=== PATIENT | male | born 1995 | race Caucasian/White ===

== ENCOUNTER 2016-10-31 18:59 | Emergency (ER) | payer SELFPAY ==
[~2016-10-31] VITALS: Ht 165.1 cm; Wt 54.4 kg
== END 2016-10-31 20:45 | disposition left against medical advice (07) ==
LOC: ED 18:59
DX: Z53.21 Procedure and treatment not carried out due to patient leaving prior to being seen by health care provider (principal)

== ENCOUNTER 2021-05-16 22:25 | Emergency (ER) | payer SELFPAY ==
[~2021-05-16] VITALS: Ht 165.1 cm; Wt 51.1 kg
--- OUTSIDE RECORDS SUMMARY | 2021-05-16 22:34 | XMS ---
PreManage Notification: FERNIE ANTONIO Security Criminal Attorney Events No recent Security Events currently on file CRITERIA MET - Group Notification CARE PROVIDERS There are no care providers on record at this time. Sulma has no Care Guidelines for this patient. Isabella VISIT COUNT (12 MO.) 1 MADAI Levine TOTAL 1 NOTE: Visits indicate total known visits. ED/C VISIT TRACKING (12 MO.) 05/16/2021 22:27 MADAI Dow OR TYPE: Emergency COMPLAINT: - LIGHT HEADED INPATIENT VISIT TRACKING (12 MO.) No inpatient visits to display in this time frame [id number]
== END 2021-05-17 01:53 | disposition home or self-care (01) ==
LOC: ED 22:25
DX: K12.1 Other forms of stomatitis (principal); F17.200 Nicotine dependence, unspecified, uncomplicated
CPT/HCPCS: 36415; 80048; 81001; 83735; 85025; 99283

== ENCOUNTER 2021-12-31 03:25 | Inpatient (IN) | payer OTHER ==
[~2021-12-31] VITALS: Ht 165.1 cm; Wt 51.8 kg
--- OUTSIDE RECORDS SUMMARY | 2021-12-31 03:32 | XMS ---
PreManage Notification: FERNIE ANTONIO Security Teletype Clerk Events No recent Security Events currently on file CRITERIA MET - Group Notification CARE PROVIDERS There are no care providers on record at this time. Sulma has no Care Guidelines for this patient. Isabella VISIT COUNT (12 MO.) 2 MADAI Levine TOTAL 2 NOTE: Visits indicate total known visits. ED/C VISIT TRACKING (12 MO.) 12/31/2021 03:25 MADAI Dow OR TYPE: Emergency COMPLAINT: - ABD PAIN 05/16/2021 22:27 MADAI Dow OR TYPE: Emergency COMPLAINT: - LIGHT HEADED DIAGNOSES: - Other forms of stomatitis - Fever, unspecified - Nicotine dependence, unspecified, uncomplicated INPATIENT VISIT TRACKING (12 MO.) No inpatient visits to display in this time frame [id number]
--- NOTE | 2021-12-31 06:39 | NUR ---
PT ARRIVED TO UNIT FROM ED. ASSESSMENT COMPLETED. PT IS A/O, RESPIRATIONS EVEN AND REGULAR. IV FLUIDS RUNNING, IV SITE WNL. NG TUBE IN PLACE TO WALL SUCTION. PT DENIES PAIN OR NAUSEA ATT. CALL LIGHT WITHIN REACH.
--- NOTE | 2021-12-31 07:00 | NUR ---
bedside report from morris rn, iv fusing, ngt to liw suction, pt npo resting in bed, oriented to new rn with call light in reach. denies needs at this time.
--- NOTE | 2021-12-31 07:30 | NUR ---
dr banegas in with pt and guest. plan for surgery this am. RN obtained signature on consent, strait tubing hanging and surgical wipe complete - with ngt to liw suction. pt has no metal or rings watches jewlery etc. education to pt for surgery instuctions.
--- NOTE | 2021-12-31 08:14 | NUR ---
PT TO OR VIA BED WITH NGT AND STRAIT TUBING WITH ANCEF. HEPARIN AND PEPCID GIVEN PRE OP IN RM 115 BY THIS RN. MASK ON PT.
--- NOTE | 2021-12-31 10:40 | NUR ---
Pt. lives in an apartment with a roommate, girlfriend, Caroline is in the room. Pt does not use any DME, he has cerebral palsy, but no issues. Gait deficit reported but Caroline denies this. Pt plans on dc to home wheh cleared medically.
--- NOTE | 2021-12-31 11:45 | NUR ---
PT TAKEN TO OR FOR SURGERY. WILL FOLLOW
--- NOTE | 2021-12-31 11:52 | NUR ---
12/31/21 1152 Nenita Medley 1146 PATIENT ARRIVES TO PACU AWAKE OFF/ON, BUT DROWSY. SLEEPING WHEN NOT STIMULATED.
--- NOTE | 2021-12-31 12:01 | NUR ---
PTS FAMILY RETURNED TO ROOM. UPDATED ON PT STATUS AND PLAN OF CARE. NO ADDITONAL QUESTIONS OR REQUESTS.
--- NOTE | 2021-12-31 12:45 | NUR ---
PT RETURNED TO ROOM 115 VIA BED, SCD'S, IV LR AT 85/HR, PT DENIES PAIN, LEFT INGUINAL INCISION WITH SMALL AMT OF RED DRAINAGE TO ACTICOTE. PT TOLL CLEAR LIQUIDS, FRIEND IN ROOM, CALL LIGHT IN REACH - DISCUSSED PLAN OF CARE - BEDSIDE CPOX ON FINGER - 97% ROOM AIR.
--- NOTE | 2021-12-31 13:30 | NUR ---
Attempted to schedule pt with PFM for a new pcp. Was unable to speak with sports lawyer and message was left requesting a pcp for this pt as this is the clinic he would like to use. Pts name, , and phone number left on message.
--- NOTE | 2021-12-31 14:47 | NUR ---
MED REC COMPLETE
--- NOTE | 2021-12-31 14:53 | NUR ---
call to dr banegas - pt dressing on left inguinal area saturated with fluid and blood, ok to remove and replace - dr banegas here on floor at this time [id number];
--- NOTE | 2021-12-31 17:36 | NUR ---
PT PAIN 3/10 DENIES NEED FOR PAIN MEDS AT THIS TIME - JUST GOT DINNER TRAY - AGREES TO GET UP AND WALK TO BATHROOM AFTER MEAL FOR NEXT VOID - ABLE TO USE URINAL AND HAS QS - 900 ML OUT. DRESSING TO LEFT SURGICAL SITE - HERNIA IS CDI WITH ABD TO COVER - STERI STRIPS STILL INTACT. PT DID NOT WANT TO STAND UP AT THIS TIME FOR LINEN CHANGE - WILL DO WHEN HE STANDS - DRY CHUX OVER SURGICAL DRAINAGE LEFT SIDE. PT IS CDI AT SKIN SITE. IV LR AT 85 - GF AT BEDSIDE AND THEY ARE WATCHING TV. - USES IS WELL AND ENC. TO KEEP USING TO EXPAND LUNGS AND DEEP BREATH.
--- NOTE | 2021-12-31 18:08 | NUR ---
PT MOVING AROUND IN BED DURING MEAL REPORTS INCREASED DISCOMFORT - DRSG WNL - CDI - IV TORADOL GIVEN FOR PAIN,
--- NOTE | 2021-12-31 18:21 | NUR ---
PT AMB IN ROOM AND TO BATHROOM TO VOID - LINEN CHANGED AND PT VITALS TAKEN - CALL LIGHT IN REACH -
--- NOTE | 2021-12-31 19:26 | NUR ---
bedside report to trina summers, pt eyes closed, resp rate even, call light in reach - iv fusing and girlfriend in room. did not disturb pt. introduced gf to new rn,
--- NOTE | 2021-12-31 22:27 | NUR ---
coworker cely stovall called and asked to be transferred to pt room, pt made aware. pt recently medicated and asks that he call his coworker once he feels better. coworker made aware and contact information left with pt. primary rn trina remains in room. phone # [phone].
--- NOTE | 2021-12-31 22:30 | NUR ---
PATIENT HAD BEEN MEDICATED WITH 1 TAB PAIN MEDICATION PRIOR TO THIS ENTERING ROOM, PATIENT COMPLAINING OF PAIN STATING " IT'S SHOOTING INTO MY BUNGHOLE AND MOVING UP INTO MY BELLY BUTTON" PATIENT GROANING IN PAIN. ALSO COMPLAINING OF NAUSEA. ADMINISTERED ZOFRAN, MORPHINE, AND SECOND PAIN PO PAIN MEDICATION PER APR. PATIENT RATED PAIN 7 TO 8 OUT OF 10 ON PAIN SCALE BEFORE MEDICATION ADMINISTRATION THEN AT 2219 PATIENT STATED " I AM A 2/10 ON PAIN SCALE AND IT ONLY HURTS IF I MAKE IT HURT" PROVIDED PATIENT EDUCATION ON SURGICAL PAIN, THE IMPORTANCE OF EARLY AMBULATION, AND THE RISKS IF CONTINUES TO REFUSE ACTIVITY SECONDARY OF PAIN. PATIENT AGREED THAT 2/10 ON PAIN SCALE WAS TOLERABLE, PATIENT UP TO BATHROOM TO USE URINAL. APPEARED TO TOLERATE ACTIVITY WELL. PLANS TO AMBULATE IN HALLS IN THE MORNING. DISCUSSED POC WITH PATIENT AND USING CALL LIGHT. DRESSING TO LEFT INGUINAL SURGICAL SITE APPEARS ABD APPEARS TO HAVE SMALL AMOUNT OF DRAINAGE. ATTEMPTED TO DISCUSS S/S OF INFECTION WITH PATIENT, HOWEVER PATIENT REQUESTED I STOP TALKING ABOUT IT BECAUSE IT MAKES HIM "FEEL SCARED". CALL LIGHT WITHIN REACH, SIG OTHER IN ROOM STAYING THE NIGHT.
--- NOTE | 2022-01-01 01:18 | NUR ---
PATIENT APPEARS TO BE RESTING WITH EYES CLOSED. LIGHTS DIM. CALL LIGHT WITHIN REACH.
--- NOTE | 2022-01-01 04:00 | NUR ---
0300 INTO ROOM TO COLLECT VITAL SIGNS, PATIENT APPEARED TO BE SLEEPTING WELL WITH EYES CLOSED IN POSITION. WOKE PATIENT FOR VITAL SIGNS. PATIENT TURNED TO BACK THEN WITH EYES BULGING STARTED DRY HEAVING. PROVIDED PATIENT WITH PILLOW TO SPLINT. 0330 PATIENT HAD 100 ML OF EMESIS, UNDIGESTED FOOD AND BILE. 0400 MEDICATED PATIENT PER MAR. TOOK CRACKERS FROM PATIENT, AND PROVIDED WITH CLEAR LIQUIDS. PATIENT APPEARS TO BE TOLERATING CLEAR LIQUIDS WELL. BOWEL TONES ACTIVE. PATIENT RATES PAIN 2/10 ON PAIN SCALE AND REPORTS NAUSEA RESOLVED. PLAN TO AMBULATE IN HALLS BEFORE END OF SHIFT, PATIENT VERBALIZED UNDERSTANDING.
--- NOTE | 2022-01-01 06:41 | NUR ---
FRIEND/COWORKER LUDY QUINTERO CALLED, TRANSFERRED TO pt's HOSPITAL ROOM.
--- NOTE | 2022-01-01 06:59 | NUR ---
AMBULATED PATIENT IN BRANDT, PATIENT REQUESTED WALKER. TOLERATED ACTIVITY WELL. STATED " I THINK I FARTED" ENCOURAGED PATIENT TO PASS GAS. PATIENT STATED " I WISH I WOULD HAVE DONE THIS SOONER LIKE YOU SAID TO" PROVIDED AND REINFORCED EDUCATION WITH IMPORTANCE OF POST OP AMBULATION AND DRINKING FLUIDS.
--- NOTE | 2022-01-01 07:10 | NUR ---
REPORT RECEIVED FROM HOWARD JULES. PT SITTING UP IN CHAIR AND RESPONDS WHEN ADDRESSED. PTs SIGNIFICANT OTHER IN ROOM ON COUCH. PT STATES "I AM FARTING." PT REPORTS NO NEEDS AT THIS TIME. CALL LIGHT IN REACH.
--- NOTE | 2022-01-01 07:39 | NUR ---
NOTIFIED DR. OCONNOR THAT PATIENT NOT ABLE TO KEEP DOWN SALTINE CRACKERS. PATIENT HAD 100 ML EMESIS OF UNDIGESTED FOOD AND BILE. NEW ORDER FOR KUB AP AND LATERAL. PLACED ORDER [facility], CONTACTED [facility], WHO VERBALIZED WOULD EDIT ORDER MEET DR. OCONNOR'S ORDER.
--- NOTE | 2022-01-01 08:46 | NUR ---
IN TO ADMINISTER MEDICAITONS. PT SITTING UP IN BED WITH MEAL TRAY. PT TAKES PO MEDICATIONS WITH NO ISSUES AND TOLERATES SUB-Q INJECTION WELL. ASSESSMENT COMPLETE. PT REPORTS PAIN 2/10 AND STATES "IT IS NOT BAD" PT REPORTS PAIN IS TOLERABLE. PAIN IN LLQ. BOWEL TONES ACTIVE IN ALL QUADRANTS. DRESSING HAS SMALL AMOUND OF SANGUINEOUS DRAINAGE. DRESSING C/D/I OTHER BUCK. BANDAIDS TO RIGHT GREAT TOE AND SECOND TOE NOTED. IV INFUSING AT 85ML/HR. NO OTHER NEEDS AT THIS TIME CALL LIGHT IN REACH.
--- NOTE | 2022-01-01 10:00 | NUR ---
PT UP AND AMBULATING SELF AROUND IN [facility] F[facility]. PT HAS STEADY GAIT.
--- NOTE | 2022-01-01 10:35 | NUR ---
IN TO ROUND ON PT. PT LAYING IN BED. PT MEAL TRAY REMOVED. PT REQUESTING MORE WATER, WATER PROVIDED. NO OTHER NEEDS AT THIS TIME. CALL LIGHT IN REACH.
--- NOTE | 2022-01-01 12:03 | NUR ---
THIS RN IN TO SEE PATIENT WHO IS HAVING HEAVES AND A SMALL AMOUNT OF EMESIS. 8MG SIVP ZOFRAN GIVEN. VERBAL ORDER GIVEN TO THIS RN TO INCREASE IV FLUIDS TO 125MLS/HR AND THIS RN INCREASED THE RATE. PATIENT ALSO TO BE NPO EXCEPT SIPD FOR COMFORT AT THIS TIME. PATIENT AWARE AND LUNCHE TRAY HELD. PATIENT TOLD TO CALL IF STILL NAUSEATED IN 20 MINUTES.
--- NOTE | 2022-01-01 12:55 | NUR ---
PT CALL LIGHT ON. THIS RN TO ROOM. PT VOMITIING. PT HAS HAD LIGH GREEN EMESIS APROXIMATLY 50ML. PT CONTINUES TO HEAVE. PHENGRAN GIVEN. ALCOHOL SWAB UNDER NOSE PROVIDED. ORAL CARE DONE. DR. OCONNOR CONSULTED. NG TUBE ORDERS, X-RAY FOR CONFIRMATION, AND CHLORASEPTIC SPRAY ORDERS GIVEN. NG TUBE PLACED PER PROTOCOL. 100+ML LIGHT GREEN FLUID RETURN NOTED. X-RAY CALLED, STATE THEY WILL BE TO BEDSIDE SOON. PT TOELRATED PROCEEDURE WELL. NO ADDITIONAL NEEDS AT THIS TIME. CALL LIGHT WITHIN REACH. BED RAILS UP. FAMILY AT BEDSIDE.
--- NOTE | 2022-01-01 13:58 | NUR ---
THIS RN TO ROOM TO CHECK ON PT. PT RESTING IN BED WITH EYES CLOSED, AWAKENS TO MOVEMENT IN THE ROOM. PT RPEORTS 3/10 "STOMACH" PAIN AND REQUESTS PAIN MEDICATIONS. SEE MAR FOR MEDICAITON GIVEN. PT DENEIS NAUSEA. NG TUBE REMAINS TO LOW INTERMITTANT SUCTION. PT DENIES SORE THROAT AT THIS TIME. PT ADIVSED THAT CHLORASEPTIC SPRAY IS AVALIABLE IF REQUESTED. NO ADDITIONAL NEEDS AT THIS TIME. CALL LIGHT WITHIN REACH. BED RAILS UP. FAMILY AT BEDSIDE.
--- NOTE | 2022-01-01 14:33 | NUR ---
IN TO ROUND ON PT. VITALS COMPLETE. PT LAYING IN BED WITH EYES CLOSED. RR EVEN AND UNLABORED. SIGNIFICANT OTHER IN ROOM. NEW BAG OF IV FLUIDS STARTED. PT AWAKENS WHEN ADDRESSED AND REPORTS NO OTHER NEEDS AT THIS TIME. CALL LIGHT IN REACH.
--- NOTE | 2022-01-01 15:44 | NUR ---
IN TO ROUND ON PT. PT LAYING IN BED WITH EYES CLOSED. RR EVEN AND UNLABORED. SIGNIFICANT OTHER IN ROOM. NO NEEDS IDENTIFIED AT THIS TIME. CALL LIGHT IN REACH.
--- NOTE | 2022-01-01 16:49 | NUR ---
IN TO ANSWER CALL LIGHT. PT STATES "CLAMMY." COOL CLOTH PROVIDED. VITALS COMPLETE. VSS. NO TEMPERATURE. PT REPORTING PAIN 3/10. ASSESSMENT COMPLETE. DRESSING DRY AND INTACT. SLIGHT LOCAL RISE IN TEMPERATURE AROUND INCISION, ICE PACK APPLIED. ABD NON-DISTENDED AND FLAT. BOWEL TONES ACTIVE IN ALL QUADRANTS. NG TUBE TO LOW INTERMITENT SUCTION. ONCE ASSESSMENT COMPLETE PT REPORTING PAIN 7/10 IN LLQ. PRN MORPHINE PROVIDED, SEE MAR. ASSISSTED PT WITH AMBULATING 1/4 OF THE MED/SURG BRANDT WITH FWW PT STATES "I BLACKED OUT I NEED TO GO BACK." PTs GAIT STEADY. PT AMBULATED BACK TO ROOM WITH FWW AND LAID BACK DOWN IN BED. PT PLACED BACK ON NG SUCTION. ICE PACK PLACED TO SURGICAL SITE. LIGHTS DIMMED FOR COMFORT. NO OTHER NEEDS AT THIS TIME. CALL LIGHT IN REACH. SIGNIFICANT OTHER IN ROOM.
--- NOTE | 2022-01-01 18:17 | NUR ---
IN TO ROUND ON PT. PT REPORTING PAIN /. PT REPORTS BEING UPSET STATING HIS SIGNIFICANT OTHER "JUST LEFT AND BROKE UP WITH HIM." MADE PLAN TO WALK PT IN BRANDT. NO OTHER NEEDS AT THIS TIME. CALL LIGHT IN REACH.
--- NOTE | 2022-01-01 18:49 | NUR ---
IN TO ASSIST PT WITH AMBULATION. PT AMBULATED WITH FWW AND STANDBY ASSIST 2 LAPS AROUND MED/SURG BRANDT. I&Os COMPLETE. PT LAYING IN BED. IV INFUSING. NG BACK ON INTERMITTENT SUCTION. PT REPORTS NO OTHER NEEDS AT THIS TIME. CALL LIGHT IN REACH. LIGHTS DIMMED FOR COMFORT.
--- NOTE | 2022-01-01 20:11 | NUR ---
ngt TO liws r NARE IN PLACE, PATENT, DRAINING THICK BROWN/GREEN DRAINAGE. ABD INSIIN l LOW INGUINAL AREA INTACT. C/O ABD PAIN, MEDICATED WITH MORPHINE 5MG iv, ICE TO AREA, DENIES PASSING GAS. iv lca PATEN. ANXIOUS, IRRITABLE, REDIRECTABLE
--- NOTE | 2022-01-01 21:28 | NUR ---
Pt resting, on room air, drowsy, awakes easily, NGT to LIWS, NPO, oral swabs and call light at hands reach
--- NOTE | 2022-01-02 00:40 | NUR ---
Pt standing edge of bed walking in place. NGT to LIWS, flushed, draining very thick greenish colored drainage. L abd side more distendedn NICOLÁS bowel tones, c/o abd pain, L inguinal areaa dressing in place intact. medicated with Morphine 5mg IV, IVF infusing, NPO has been doing own oral care. , SCDS off at this time, denies need for voids. pleasant and cooperative
--- NOTE | 2022-01-02 02:57 | NUR ---
IN BED, HOB ELEVATED TO COMOFRT, NGT PATENT TO LIWS, IVF INFUSING, TURNS AND REPOSITINS SELF IN BED, EYES CLOSED, ON ROOM AIR, NO DISTRESS
--- NOTE | 2022-01-02 03:45 | NUR ---
up walking in place , room air, ngt to liws draining very thick green colored drainage, c/o increaed abd pain, very rare bowel tones auscultated, abd very firm left more than righ, tender, L inguinal low abd area dressing in place with shadowing, ss patent and old drainage. burping, denies passing gas. NGT flushed, increased facial distress noted. voided light monie colored urine small amounts. used urinal, increaed anxiety noted, reassured. coop with assessment and vitals, scds off. NPO does own oral care. IVF infusing w/o problems
--- NOTE | 2022-01-02 04:51 | NUR ---
in bed, eyes closed, no distress, calmer, IVF infusing R NGT to LIWS patent NPO , does own oral care, uses call light
--- NOTE | 2022-01-02 06:47 | NUR ---
Pt standing edge of bed, c/o increaed abd pain. medicated with Toradol IV. NGT to LIWS, draining very thick green drainage, flushed, pt very worried and concerned about not draining as fast, procedure explained. Abd distended. very rare faint bowel tones more on R side than left. dressing L low abd inguinal area in place. Walked hallways down to double doors by pharmacy, back up and around upper nursing station using FWW and SBA, tolerated well, increaed hickups present, no emesis, denies passing rectal gas, NPO does own oral care. IVF infusing w/o problems. still anxious reassured, currently sitting edge of bed.
--- NOTE | 2022-01-02 07:05 | NUR ---
REPORT RECEIVED FROM HOWARD ARAMBULA. PT SITTING UP IN BED AND RESPONDS WHEN ADDRESSED. PT STATES "IT STILL HURTS, BUT I AM FEELING BETTER." PT REPORTS NO NEEDS AT THIS TIME. CALL LIGHT IN REACH. FRIEND IN ROOM.
--- NOTE | 2022-01-02 07:45 | NUR ---
PT AWAKE IN ROOM. WHITE BOARD UPDATED. VISITOR IN ROOM. WARM PACK GIVEN. CALL LIGHT IN REACH. NO FURTHER NEEDS AT THIS TIME.
--- NOTE | 2022-01-02 08:59 | NUR ---
IN TO ADMINISTER MEDICATIONS. PT SITTING UP IN BED. PT TOLERATES SUB-Q INJECTION WELL. ASSESSMENT COMPLETE. BOWEL TONES HYPOACTIVE IN ALL QUADRANTS. PT REPORTS NON-TENDER WITH PALPITATION. DRESSING D/I WITH SMALL AMOUND OF OLD DRAINAGE. ICE PACK APPLIED TO AREA. PT REPORTS NO PAIN AT THIS TIME. BANDAIDS NOTED TO RIGHT GREATER TOE AND SECOND TOE. PT REQUESTS CHLORASEPTIC SPRAY, CHLORASEPTIC SPRAY PROVIDED. NO OTHER NEEDS AT THIS TIME. CALL LIGHT IN REACH.
--- NOTE | 2022-01-02 12:36 | HP ---
[facility] [address], [place] [address] Signed ADMISSION DATE: 12/31/2021 REASON FOR ADMISSION: Small bowel obstruction related to an incarcerated left inguinal hernia. 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 He presented to the emergency room in property handler hours and evaluated thoroughly by Dr. Bowers for nausea and vomiting and severe abdominal pain. Evaluation included a CT scan that confirmed a small bowel obstruction with concurrent incarcerated left inguinal hernia. A nasogastric tube has been placed. He has been admitted for further evaluation and care. PAST MEDICAL HISTORY: Noted for cerebral palsy, he does have gait disturbance related to that. He has had multiple operations on his legs for tendon release and so on. He had does use marijuana on a routine basis. He is accompanied by his girlfriend. REVIEW OF SYSTEMS: He denies any shortness of breath or chest pain. He did have nausea and vomiting, though now has a nasogastric tube in place. PHYSICAL EXAMINATION: GENERAL: A very thin white man, who is not systemically toxic. His pain is improved apparently. VITAL SIGNS: Temperature is 97.8, pulse 78, respirations 16, blood pressure 164/95, and O2 saturation on room air, 100%. His overall weight is 115 pounds. BMI is 19.1. NECK: Nasogastric tube was in place with minimal amount of drainage. CHEST: Shows normal respiratory excursion. Pulse is regular. ABDOMEN: Flat. There is fullness in the left groin suggestive of incarcerated inguinal hernia. : Testicles are normal. EXTREMITIES: Show no clubbing, cyanosis, or edema. LABORATORY STUDIES: Showed white count 12.4 and hematocrit 44.6. Electrolytes normal, though potassium slightly low at 3.2. COVID test is negative. IMAGING DATA: CT scan confirms left inguinal hernia, containing small bowel and small bowel obstruction concurrently noted. Electronically Signed By: MELISA OCONNOR MD 01/02/22 1236 PATIENT NAME: FERNIE ANTONIO HISTORY AND PHYSICAL DATE OF : [birth year] REPORT #: [id number] PHYSICIAN: MELISA OCONNOR MD PCP: NO PRIMARY CARE PHYSICIAN REPORT IS CONFIDENTIAL AND NOT TO BE RELEASED WITHOUT AUTHORIZATION [facility] [address], [place] [address] Signed ASSESSMENT AND PLAN: The patient has incarcerated left inguinal hernia with associated small bowel obstruction. He is getting IV fluids and would anticipate operation without delay. I have called the operating room and we will arrange in the morning the surgery, schedule to accommodate his emergency operation. The risks of bleeding, infection, need for bowel resection, anticipated plan for implantation of mesh, and so forth were all reviewed in detail with him in the presence of his girlfriend. He understands and wished to proceed. MD DMITRY Jovel/GIANFRANCO /[id number] cc: Dr. Bowers Copies: ~ Electronically Signed By: MELISA OCONNOR MD 01/02/22 1236 PATIENT NAME: MARCOS FERNIE VALLE HISTORY AND PHYSICAL DATE OF : [birth year] REPORT #: [id number] PHYSICIAN: MELISA OCONNOR MD PCP: NO PRIMARY CARE PHYSICIAN REPORT IS CONFIDENTIAL AND NOT TO BE RELEASED WITHOUT AUTHORIZATION
--- NOTE | 2022-01-02 12:53 | NUR ---
IN TO ADMINISTER GASTROGRAFIN THROUGH NG TUBE, PER DR. OCONNOR, SEE MAR. PT TOLERATED WELL. NG TUBE CLAMPED. NEXT DOSE IN 1 HOUR. WILL RETURN FOR NEXT DOSE. NO OTHER NEEDS AT THIS TIME. CALL LIGHT IN REACH.
--- NOTE | 2022-01-02 13:46 | NUR ---
SECOND DOSE OF GASTROGRAFIN IN. PATIENT TOLERATING THIS WELL WITH NG CLAMPED SINCE 1ST DOSE. RADIOLOGY INFORMED. CALL LIGHT IS IN REACH.
--- NOTE | 2022-01-02 14:47 | NUR ---
PATIENT CALLED HAVING 8/10 SHARP ABD PAIN AND NAUSEA. 12.5MG PROMETHAZINE GIVEN IN 20MLS NS PER PROTOCOL AND 4MG SIVP MORPHINE GIVEN WELL. PATIENT IS DECREASING IS NAUSEA. PATIENT JUST HAD A VISITOR COME IN TO SEE HIM. AWAITING RADIOLOGY TO TAKE PATIENT DOWN FOR HIS DIAGNOSTIC IMAGING. CALL LIGHT IS IN REACH.
--- NOTE | 2022-01-02 14:58 | NUR ---
PATIENT ON HIS WAY TO CT. ABD PAIN AND NAUSEA HAVE RESOLVED. PATIEN TO X-RAY VIA W/C.
--- NOTE | 2022-01-02 15:20 | NUR ---
PATIENT BACK FROM CT AND IN HIS BED. IV FLUIDS HOOKED UP AND AND RUNNING WNL. PATIENT DENIES ANY FURTHER NAUSEA OR PAIN AT THIS TIME. CALL LIGHT IN REACH. PATIENT DENIES ANY OTHE CARE NEEDS AT THIS TIME.
--- NOTE | 2022-01-02 17:26 | NUR ---
IN TO ROUND ON PT. PT STATES "IT IS HURTING." PT REPORTS PAIN 9/10 AND FEELS NAUSEAUS. PRN MORPHINE AND ZOFRAN ADMINISTERED. ASSESSMENT COMPLETE. DRESSING HAS SMALL AMOUNT OF OLD RED DRAINAGE, OTHERWISE DRY AND INTACT. BOWEL TONES HYPOACTIVE IN ALL QUADRANTS. PT REPORTS TENDER IN ALL QUADRANTS WITH PALPITATION. LUNG SOUNDS CLEAR IN ALL LOBES. NG TUBE TO LOW INTERMENTINT SUCTION. IV FLUIDS RUNNING. PT SITTING UP IN BED. NO OTHER NEEDS AT THIS TIME. CALL LIGHT IN REACH. FRIEND IN ROOM.
--- NOTE | 2022-01-02 18:24 | NUR ---
PATIENT CALLED AND IS ABDULKDAIR CONCENED BECAUSE HIS TESTICLES HAVE BECOME QUITE SWOLLEN. THIS RN OBSERVED THAT THE PATIENT DOES APPEAR TO HAVE A FAIR AMOUNT OF DEPENDENT EDEMA IN HIS SCROTUM THAT IS NOT PAINFUL. PATIENT WORRIED HIS TESTICLES ARE GOING TO "FALL OFF", AND THIS RN ASSURED PATIENT THAT THEY WOULD NOT JUST FALL OFF AND HELPED HIM ELEVATE THEM ON A ROLLED UP TOWEL. THIS RN INFORMED PATIENT I WOULD TALK TO ABOUT THIS NEW DEVELOPEMENT AND GET BACK TO THE PATIENT. JUST HAPPENED TO COME ON THE UNIT AND THIS RN INFORMED HIM OF THE SITUATION AND SAYS HE WILL BE SEEING THE PATIENT IN PERSON SHORTLY.
--- NOTE | 2022-01-02 18:47 | NUR ---
PT REPORTING PAIN 10/10 IN ABD. PRN MEDICATION GIVEN, SEE MAR. PT SITTING UP IN BED. NO OTHER NEEDS AT THIS TIME. CALL LIGHT IN REACH.
--- NOTE | 2022-01-02 18:57 | NUR ---
PATIENT EXTREMELY ANXIOUS ABOUT HIS SWOLLEN TESTICLES AND JUST INFORMED THE PATIENT THAT THE PATIENT WILL BE GOING TO SURGERY TONIGHT. PATIENT GIVEN 1MG IV ATIVAN SIVP BY THIS RN AND THIS RN IN TO HAVE PATIENT SIGN HIS SURGERY CONSENT FORM WHICH HE DID. CALL LIGHT IN REACH AND PARACHUTE MANUFACTURING SUPERVISOR'S IN DOING SURGICAL WIPE DOWN AND LR ON EXTENSION TUBING HANING FOR SURGERY.
--- NOTE | 2022-01-02 19:04 | NUR ---
IN TO DRAW LABS. PT TOLERATED WELL. GREG Lira RN IN TO ADMINISTER MEDICATION. NO OTHER NEEDS AT THIS TIME. CALL LIGHT IN REACH.
--- NOTE | 2022-01-02 19:21 | NUR ---
PATIENT GIVEN HIS PRE-OP ANTIBIOTIC AND IS AWATING TO GO TO OR. CALL LIGHT IN REACH AND PATIENT HAS NO OTHER CARE NEEDS AT THIS TIME.
--- NOTE | 2022-01-02 19:44 | NUR ---
REPORT RECEIVED FROM RNS GREG AND HOWARD CHO. pt OFF TO SURGERY AT THIS TIME WITH HOWARD ALVAREZ. NGT CLAMPED.
--- NOTE | 2022-01-02 22:44 | NUR ---
01/02/22 2244 Trinh Smith 2209 PT ARRIVED TO PACU ON RA, PT WAKES AND STARTS MOVING IN BED, PT REORIENTED TO PACU. 2214 PT MOANING IN BED AND REPORTS ANXIETY, "SO MUCH GOING ON AND I JUST WOKE UP." SENIOR PROCUREMENT MANAGER AT BEDSIDE PLACING IV. 222 PAIN MEDIICATION GIVEN PER EMAR.
--- NOTE | 2022-01-02 23:20 | NUR ---
pt BACK FROM SURGERY. DROWSY. VSS. pt AWAKENS TO VOICE. ASSESSMENT COMPLETE. NGT TO LOW INT SUCTION, GREEN DRAINAGE. BOWEL TONES HYPOACTIVE, ABD SOFT, NON-TENDER. DRESSINGS INTACT, SMALL AMT SS DRAINAGE ON MID ABDOMEN ACTICOAT. CALL LIGHT IN REACH. BED ALARM ON.
--- NOTE | 2022-01-03 00:22 | NUR ---
pt AWAKENS TO VOICE. VSS. pt STATES "I HAVE TO PEE" REORIENTED TO CATHETER. pt'S FATHER IN ROOM. pt DENIES ANY PAIN. CALL LIGHT IN REACH. BED ALARM ON.
--- NOTE | 2022-01-03 01:05 | NUR ---
pt AWAKE, VISITING WITH FATHER. VSS. DENIES PAIN. CHIANG DRAINING YELLOW URINE. NGT TO LOW INT SUCTION. NO REQUESTS AT THIS TIME.
--- NOTE | 2022-01-03 02:31 | NUR ---
pt SLEEPING, AWAKENS TO VOICE. ASSESSMENT COMPLETE. DRAINAGE UNCHANGED ON MID ABDOMEN ACTICOAT. BOWEL TONES HYPOACTIVE. ABD SOFT, TENDER WITH PALPATION. pt DENIES PAIN. IVF INFUSING WNL. SCDS ON. CALL LIGHT IN REACH.
--- NOTE | 2022-01-03 04:00 | NUR ---
PT SCD'S ALARMING. ADJUSTED, PT STIRRED, MOVED HEAD, BUT DID NOT SPEAK. RESP EVEN AND UNLABORED.
--- NOTE | 2022-01-03 05:39 | NUR ---
CALL LIGHT ANSWERED. pt COMPLAINS OF 9-10/10 PAIN IN ABDOMEN. PRN PAIN MEDICATIONS ADMINISTERED. IV ANTIBIOTICS ADMINISTERED WNL. VSS. NGT WITH 200 MLS GREEN OUTPUT THIS SHIFT. CHIANG WITH YELLOW URINE. NO ADDITIONAL REQUESTS. DRESSINGS INTACT, NO NEW DRAINAGE. CALL LIGHT IN REACH.
--- NOTE | 2022-01-03 07:05 | NUR ---
REPORT RECEIVED FROM HOWARD MOCTEZUMA. PT LAYING IN BED AND OPENS EYES AND RESPONDS WHEN ADDRESSED. PT REPORTS BEING TIRED. PT REPORTS NO OTHER NEEDS AT THIS TIME. CALL LIGHT IN REACH.
--- NOTE | 2022-01-03 08:41 | NUR ---
NEW BAG OF LR HUNG BY THIS RN AND IS INFUSING WNL. PATIENT HAS A FRIEND AT BEDSIDE VISITING. CALL LIGHT IN REACH. PATIENT HAS NO OTHER CARE NEEDS AT THIS TIME.
--- NOTE | 2022-01-03 09:20 | NUR ---
IN TO ADMINISTER MEDICATIONS. PT SITTING UP IN BED WITH VISITOR AT BEDSIDE. PT TOLERATED SUB-Q INJECTION WELL. ASSESSMENT COMPLETE. MIDLINE ABD DRESSING DRY AND INTACT WITH SMALL AMOUNT OF OLD SEROUSANGENOUS DRAINAGE. LEFT LOWER QUADRANT SURGICAL SITE STERI STRIPS IN PLACE C/D/I. HYPOACTIVE BOWEL TONES IN ALL QUADRANTS. PT ON LIWS FOR NG TUBE. IV FLUIDS INFUSING. SCDs IN PLACE TO BLE. MADE PLAN WITH PT TO AMBULATE IN BRANDT. NO OTHER NEEDS AT THIS TIME. CALL LIGHT IN REACH.
--- NOTE | 2022-01-03 10:26 | NUR ---
1000 IN TO AMBULATE PT. PT AMBULATED MED/SURG BRANDT X1 LAP WITH SBA AND FWW. PT HAS A SLOW STEADY GAIT. ONCE BACK INTO ROOM PT REPORTING PAIN / AND REQUESTING PRN PAIN MEDICATION. PRN PAIN MEDICATION ADMINISTERED, SEE APR. NEW LINENS ON PTs BED. PT LAYING IN BED WITH HOB ELEVATED. NG TUBE TO LIWS. FLUIDS RUNNING. PT PLACED BACK ONTO CONTINUOUS PULSE OX WITH O2 AT 99% ON RA. NO OTHER NEEDS AT THIS TIME. CALL LIGHT IN REACH.
--- NOTE | 2022-01-03 11:00 | NUR ---
Spoke with pt and his gisellad. Pt returned to surgery last night and now has an NG tube. Pt cont. to plan on dc to home and has a roommate Breana who will assist. Stepdanicolle also states he will return if needed, he works 3 hours away. Pt also states his girlfriend Caroline broke up with him and he would like her removed from his emergency contact. I will notify admitting. Pt states he does not drive and will not be able to get to his appts. Let him know he has [facility] and free transport to all medical and dental appts. Number given for transport. Also let him know I have been attempting to get him a pcp through [facility] and he is in agreement and as he uses their Urgent Care for a pcp at this time. Attempted to call Mehreen at [facility] as I left a message last week, I have not been able to reach them to schedule appt.
--- NOTE | 2022-01-03 12:23 | NUR ---
IN TO ROUND ON PT. PT REQUESTING BANDAIDS FOR RIGHT GREAT TOE AND SECOND TOE, BANDAIDS PROVIDED AND PLACED. PT REPORTING PAIN 6/10 AND STATES "IT IS RIGHT ABOVE THE INCISION." PT DENIES WANTING PAIN MEDICATION AT THIS TIME. PLANS MADE TO WALK PT LATER TODAY. NO OTHER NEEDS AT THIS TIME. CALL LIGHT IN REACH.
--- NOTE | 2022-01-03 12:34 | NUR ---
THIS RN ASKED [facility] TO AMBULATE PT IN BRANDT. THIS RN AND [facility] IN ROOM. THIS RN UNPLUGGED IV PUMP FROM WALL AND CLAMPED NG TUBE. [facility] AMBULATING PT WITH FWW AND SBA. NO OTHER NEEDS FROM THIS RN AT THIS TIME.
--- NOTE | 2022-01-03 13:14 | NUR ---
PT BACK IN BED FROM AMBULATING BRANDT X4 LAPS. PT REPORTING PAIN 9/10 IN ABD. PRN MORPHINE GIVEN, SEE MAR. PT REPORTS NO NAUSEA. PT REQUESTING ICE PACK, ICE PACK PROVIDED. NO OTHER NEEDS AT THIS TIME. CALL LIGHT IN REACH.
--- NOTE | 2022-01-03 14:34 | NUR ---
IN TO ADMINISTER MEDICATION, SEE MAR. PT LAYING IN BED WITH EYES CLOSED. PT RESPONDS WHEN ADDRESSED. NO OTHER NEEDS AT THIS TIME. CALL LIGHT IN REACH.
--- NOTE | 2022-01-03 15:25 | NUR ---
IN TO ROUND ON PT LAYING IN BED WITH EYES CLOSED. PT RESPONDS WHEN ADDRESSED. PT REPORTS NO NEEDS AT THIS TIME CALL LIGHT IN REACH.
--- NOTE | 2022-01-03 15:43 | NUR ---
PATIENT DISCONNECTED FROM NG SUCTION AND IV SO HE CAN GO FOR A WALK. PATIENT OUT WALKING THE HALLWAYS WITH FWW INDEPENDENTLY WITH FRIEND WALKING ALONG SIDE.
--- NOTE | 2022-01-03 16:04 | NUR ---
Called and scheduled pt with pcp appt to establish care with Dr. Noble on Feb 18 at 2:30 pm.
--- NOTE | 2022-01-03 16:15 | NUR ---
ASSESSMENT COMPLETE. MIDLINE ABD DRESSING DRY AND INTACT WIT SMALL AMOUNT OF OLD SEROUSANGENOUS DRAINAGE. LEFT LOWER SURGICAL SITE COVERED WITH SETERISTRIPS C/D/I. HYPOACTIVE BOWEL TONES IN ALL QUADRANTS. PT ON LIWS NG TUBE. IV FLUIDS INFUSING. LUNG SOUNDS CLEAR. PT REPORTING PAIN 3/10 IN ABD BUT DENIES WANTING ANY PAIN MEDICATION AT THIS TIME. PT STATES "I WILL LET YOU KNOW IF IT GETS WORSE." PT STATES HE AMBULATED "4 LAPS" IN THE MED/SURG BRANDT THIS EVENING. SCDs IN PLACE. NO OTHER NEEDS AT THIS TIME. CALL LIGHT IN REACH.
--- NOTE | 2022-01-03 17:05 | NUR ---
MD AWARE OF HYPOACTIVE BOWEL TONES.
--- NOTE | 2022-01-03 17:22 | NUR ---
HAS NEW ORDER TO DC CHIANG. THIS RN WENT IN AND DC'D CHIANG AND DUMPED 600MLS FROM THE CHIANG BAG. VS TAKEN AND ARE STABLE AND I+O TABULATED. PATIENT DISCONNETED FROM NG SUCTION AND IV SO HE CAN WALK IN THE BRANDT. PATIENT UP WALKING WITH FWW INDEPENDENTLY IN THE BRANDT. WILL CALL WHEN HE WANTS TO GO BACK INTO THE ROOM.
--- NOTE | 2022-01-03 17:51 | NUR ---
PATIENT RETURNED TO HIS ROOM AFTER WALKING 4 LAPS AROUND MED/SURG INDEPENDENTLY WITH FWW. NG HOOKED BACK UP TO LIWS, NEW BAG OF LR HUNG AT 125MLS/HR, AND 2GM MG+ RIDER ALSO UP AND RUNNING. PATIENT HAVING 7/10 ABD PAIN AFTER WALKING AND 6MG SIVP MORPHINE GIVEN. CALL LIGHT IN REACH AND PATIENT HAS NO OTHER CARE NEEDS AT THIS TIME.
--- NOTE | 2022-01-03 18:56 | NUR ---
IN TO ADMINISTER MEDICATION, SEE MAR. PT SITTING UP IN CHAIR. PT RESPONDS WHEN ADDRESSED. FAMILY MEMEBER IN ROOM. PT REPORTS NO OTHER NEEDS AT THIS TIME. CALL LIGHT IN REACH.
--- NOTE | 2022-01-03 19:20 | NUR ---
REPORT RECEIVED FROM RNS GREG AND TAMMIE. pt RESTING IN CHAIR. EYES CLOSED, HOB ELEVATED. NGT IN PLACE TO SUCTION. SPO2 WNL ON RA. NO DISTRESS NOTED. FAMILY IN ROOM.
--- NOTE | 2022-01-03 19:58 | NUR ---
PHONE CALL TO MD, VERIFIED ORDER FROM PROGRESS NOTE TO DC ANTIBIOTICS. EMAR UPDATED.
--- NOTE | 2022-01-03 21:30 | NUR ---
pt UP AMBULATING IN HALLWAY WITH FATHER. NGT CLAMPED. pt DENIES PAIN AT THIS TIME. "IT'S PRETTY GOOD RIGHT NOW".
--- NOTE | 2022-01-03 22:00 | NUR ---
pt BACK IN BED, HOB ELEVATED. NGT TO LOW INT SUCTION. pt CLAMPED FOR ABOUT 30 MINUTES FOR WALK AND RESTING IN ROOM. DENIES NAUSEA. RATES PAIN 3/10 IN ABDOMEN. PRN TORADOL ADMINISTERED. IVF INFUSING WNL. ASSESSMENT COMPLETE. MIDLINE DRESSING INTACT, STERI STRIPS IN PLACE LLQ. CALL LIGHT IN REACH. DAD IN ROOM.
--- NOTE | 2022-01-04 00:40 | NUR ---
pt SLEEPING, IV PUMP ALARMING, LOW BATTERY. PUMP PLUGGED INTO OUTLET. URINAL EMPTIED. pt AWAKENS BRIEFLY, SAYS THANK YOU AND CLOSES EYES. NGT TO LOW INT SUCTION. SCDS ON. IVF INFUSING WNL. CALL LIGHT IN REACH.
--- NOTE | 2022-01-04 03:23 | NUR ---
CALL LIGHT ANSWERED. SCD PUMP ALARMING. ISSUE RESOLVED. URINAL EMPTIED AND RINSED. PT REPORTS HE IS RESTING WELL. DENIES NEEDS.
--- NOTE | 2022-01-04 03:40 | NUR ---
CALL LIGHT ANSWERED. URINAL EMPTIED. pt AWAKE RESTING IN BED. ASSISTED TO FIND CELL PHONE. pt DENIES ANY PAIN. ASSESSMENT COMPLETE. BOWEL TONES ACTIVE AT THIS TIME. pt REPORTS FLATUS. NGT CLAMPED, pt AMBULATING IN HALLWAY WITH FWW AND FATHER SBA. IV SL FOR AMBULATION.
--- NOTE | 2022-01-04 04:22 | NUR ---
pt BACK IN BED AFTER AMBULATING IN HALLWAY 7 LAPS. RATES PAIN 2/10 IN ABDOMEN. pt WATCHING TV. IV OFIRMEV ADMINISTERED. NGT TO LOW INT SUCTION. IVF INFUSING WNL. WARM BLANKET PROVIDED. LIGHTS OFF IN ROOM.
--- NOTE | 2022-01-04 07:15 | NUR ---
REPORT RECEIVED FROM HOWARD MARTINEZ. PT SITTING UP IN BED AND RESPONDS WHEN ADDRESSED. RR EVEN AND UNLABORED. PT REPORTS FEELING WELL TODAY AND STATES "BETTER THAN YESTERDAY AND THE DAY BEFORE." PT REQUESTING WARM BLANKET, WARM BLANKET PROVIDED. NO OTHER NEEDS AT THIS TIME. CALL LIGHT IN REACH. FAMILY MEMBER IN THE ROOM.
--- NOTE | 2022-01-04 08:30 | NUR ---
PT AMBULATING BRANDT WITH IV POLE. PT HAS A STEADY GAIT.
--- NOTE | 2022-01-04 08:49 | NUR ---
PATIENT UP AMBULATING IN THE HALLWAY AD HAYDEE.
--- NOTE | 2022-01-04 09:10 | NUR ---
PT AMBULATING BRANDT.
--- NOTE | 2022-01-04 09:15 | NUR ---
pt up in halls walking independently.
--- NOTE | 2022-01-04 10:00 | NUR ---
IN TO ADMINISTER MEDICATIONS. PT SITTING UP IN BED AND RESPONDS WHEN ADDRESSED. ASSESSMENT COMPLETE. PT REPORTING 0/10 PAIN. BOWEL TONES ACTIVE. PT REPORTS HE IS PASSING GAS AT THIS TIME. PT REPOTRS ABD IS A LITTLE TENDER WITH PALPATION. NG TUBE TO LIWS. MINIMAL SCROTAL SWELLING NOTED. LUNG SOUNDS CLEAR. PT REPORTS NO NEEDS AT THIS TIME. CALL LIGHT IN REACH.
--- NOTE | 2022-01-04 12:10 | NUR ---
IN TO ROUND ON PT. PT REPORTS WANTING TO "GET OUT OF HERE" "I AM GOING STIR CRAZY." OFFERD PT PRN ATIVAN, PT DENIES WANTING ATIVAN AT THIS TIME. PT REQUESTING TO GET UP AND GO FOR A WALK. PT NG TUBE CLAMPED TO WALK THE BRANDT. NO OTHER NEEDS FROM THIS RN AT THIS TIME. PT AMBULATING BRANDT WITH STEADY GAIT.
--- NOTE | 2022-01-04 12:19 | NUR ---
Resting in bed watching TV. Patient anxious to have his NG tube removed. Requested a walker for home use because of his CP and balace issues. Paper work given to patient to rent a walker. Patient plans to go home on discharge. The patient states he has a supportive family and friends.
--- NOTE | 2022-01-04 12:25 | NUR ---
ENTERED PTS' RM, HE WAS UPRIGHT IN BED WITH NGT IN USE. PT WAS RATHER AGGITATED AND SAID HE WAS READY TO DC NOW A ND WANTED TO KNOW WHERE THE DR WAS-IF HE WAS EVEN IN THE BLDG. INFORMED PT I WILL CONTACT HIS RN AND HAVE THEM UPDATE PT. PT SEEMED FAIRLY UPSET, TRIED TO CONSOLE, INFORMED RN GIL SHE WILL FOLLOW UP.
--- NOTE | 2022-01-04 12:45 | NUR ---
PT UP TO AMBULATE X10+ LAPS IN THE BRANDT. PT STEADY ON FEET AND INDEPENDANT WITH AMBULATION. PT CALLS WHEN BACK TO ROOM FOR NG TUBE MANAGEMENT. NG TUBE RETURNED TO LOW INTERMITTANT WALL SUCTION. PT DENIES PAIN AND NAUSEA AND STATES "I WANT TO GO HOME." PT UPDATED ON PLAN OF CARE, PT VERBALIZES UNDERSTANDING. NO ADDITIONAL REQUESTS OR COMPLAINTS AT THIS TIME. CALL LIGHT WITHIN REACH.
--- NOTE | 2022-01-04 14:05 | NUR ---
PT REQUESTING PHONE AIRFIELD ENGINEER OFFICER. THIS RN LOOKED FOR PHONE AIRFIELD ENGINEER OFFICER AND FOUND THERE ARE NO CHARGERS ON THE MED/SURG FLOOR THAT ARE COMPATABLE WITH PTs PHONE. NOTIFIED PT THAT THERE ARE NO PHONE CHARGERS AVAILABLE. PT REPORTS NO OTHER NEEDS AT THIS TIME. CALL LIGHT IN REACH.
--- NOTE | 2022-01-04 15:20 | NUR ---
IN TO ANSWER CALL LIGHT. PTs FLUIDS COMPLETE. NEW BAG OF FLUIDS STARTED. DR. OCONNOR IN ROOM TO SEE PT. NEW ORDERS REVEICED FROM DR. OCONNOR. [address] OCONNOR[address] NG TUBE HAS 500ML OUTPUT GREEN IN COLOR. PT ADVANCED TO CLEARS. ASSESSMENT COMPLETE. BOWEL TONES ACTIVE. MIDLINE DRESSING D/I WITH SMALL AMOUNT OF OLD SEROUSANGENOUS DRAINAGE. LLQ INCITION STERI STRIPS C/D/I. PT REPORTS "A LITTLE TENDER" WITH PALPITATION. PT REPORTS NO NAUSEA. SCROTAL SWELLING NOTED. NO OTHER NEEDS AT THIS TIME. CALL LIGHT IN REACH.
--- NOTE | 2022-01-04 15:50 | NUR ---
PT AMBULATING IN BRANDT WITH STEADY GAIT. PT REQUESTING SPRITE. NO SPRITE ON MED/SURG FLOOR. PROVIDED PT WITH ICE WATER AND UPDATED PT. PT REQUESTING SUGAR PACKETS, SUGAR PACKETS PROVIDED. NO OTHER NEEDS AT THIS TIME. CALL LIGHT IN REACH. PT SITTING ON EDGE OF BED. FAMILY MEMBER IN ROOM. THIS RN CALLED DIETARY AND ASKED TO BRING SPRITE UP TO MED/SURG FLOOR.
--- NOTE | 2022-01-04 17:00 | NUR ---
PT AMBULATING BRANDT WITH STEADY GAIT.
--- NOTE | 2022-01-04 18:11 | NUR ---
PT REPORTS NO NAUSEA AT THIS TIME. PT REPORTS NO NEEDS, CALL LIGHT IN REACH.
--- NOTE | 2022-01-04 19:50 | NUR ---
REPORT RECEIVED FROM RNS TAMMIE AND VIKAS. pt RESTING IN BED, WARM BLANKET PROVIDED. pt STATES HE HAS A LITTLE PAIN, BUT READY TO GO TO BED SOON. DENIES NEEDS AT THIS TIME. TRAY TABLE CLEARED.
--- NOTE | 2022-01-04 20:12 | NUR ---
pt ASSESSMENT COMPLETE. BOWEL TONES ACTIVE X 4, ABD SOFT, TENDER WITH PALPATION. pt DENIES NAUSEA. DRESSINGS INTACT. PRN TYLENOL ADMINISTERED PO FOR PAIN CONTROL, RATES PAIN 3/10. SCDS ON. CALL LIGHT IN REACH.
--- NOTE | 2022-01-04 22:55 | NUR ---
pt RESTING IN BED WITH EYES CLOSED. BREATHING UNLABORED. NO DISTRESS NOTED.
--- NOTE | 2022-01-05 02:00 | NUR ---
CALL LIGHT ANSWERED. IV PUMP ALARMING. NEW BAG IVF INFUSING WNL. pt DENIES PAIN. ASSESSMENT COMPLETE. NO NAUSEA REPORTED. BOWEL TONES ACTIVE X 4, ABD SOFT, NON-TENDER WITH PALPATION. VANILLA ENSURE PROVIDED, ICE WATER FILLED. URINAL EMPTIED. CALL LIGHT IN REACH.
--- NOTE | 2022-01-05 05:25 | NUR ---
CALL LIGHT ANSWERED. pt ABLE TO HAVE LOOSE BM. BACK IN BED. RATES PAIN 4.5/10 IN ABDOMEN. PRN TYLENOL ADMINISTERED. pt ABLE TO TOLERATE 1/4 VANILLA ENSURE, NO NAUSEA. CALL LIGHT IN REACH.
--- NOTE | 2022-01-05 08:10 | OR ---
[facility] [address], [place] [address] Signed DATE OF OPERATION: 12/31/2021 SURGEON: Melisa Oconnor MD PREOPERATIVE DIAGNOSIS: Small bowel obstruction secondary to incarcerated left inguinal hernia. POSTOPERATIVE DIAGNOSIS: Small bowel obstruction secondary to incarcerated left inguinal hernia. PROCEDURE: Repair of incarcerated left inguinal hernia with implantation of Prolene mesh underlay technique (prolonged, complicated and difficult). ANESTHESIA: General endotracheal, Omer Ge, MOSAIC FLOOR LAYER and local 10 mL of 0.25% Marcaine with epinephrine. INDICATION: This 26-year-old white man works at the [employer] on [address] and has noted a bulge in the left groin for quite some time. He did not recognize this as a hernia. The patient has underlying cerebral palsy. He is ambulatory, but does have history of contractures of the legs requiring operation for that. This morning, he presented with severe abdominal pain, was found on evaluation by Dr. Bowers of the [facility] to have small-bowel obstruction and a CT scan of the abdomen confirmed small bowel obstruction as well as an incarcerated left inguinal hernia. Clinical examination shows a soft bulge in the left groin, highly consistent with incarcerated inguinal hernia. It is nonreducible. The patient has a mildly elevated white count of 12.4. He is admitted at this time to undergo repair of the hernia. He understands the risk of bleeding, infection, recurrence, need for bowel resection and so on. FINDINGS: Indeed there was a loop of small bowel incarcerated through the indirect left inguinal hernia. The aperture through which the bowel had herniated was impressively tight and narrow and reduction of the hernia was challenging to say the least. It was ultimately accomplished. Repair consisted of ligation of the neck of the hernia sac and excision of portion of it and repair of the attenuated floor with implantation of Prolene mesh in an underlay technique. At conclusion, cord structures were preserved and is believed Electronically Signed By: MELISA OCONNOR MD 01/05/22 0810 PATIENT NAME: FERNIE ANTONIO OPERATIVE REPORT DATE OF : [birth year] REPORT #: [id number] PHYSICIAN: MELISA OCONNOR MD PCP: JENNA CHAPIN MD REPORT IS CONFIDENTIAL AND NOT TO BE RELEASED WITHOUT AUTHORIZATION [facility] [address] [place] [id number] Signed that the small bowel is viable. DESCRIPTION OF PROCEDURE: The patient was brought to the operating room, given a general endotracheal anesthetic. During the course of operation, a Alcantara catheter was placed. Preoperative antibiotic Ancef was given. Sequential compression device stockings were used. The abdomen was prepared with a chlorhexidine solution and draped sterilely. An incision was made cephalad to the left pubic tubercle directly over the nonreducible bulge in the left inguinal area. Dissection was carried through the subcutaneous tissue with sharp electrocautery dissection. The external oblique was incised along its fibers and the incarcerated hernia associated with the cord was well identified. The cord and herniated bowel in the hernia sac were mobilized from the floor and encircled with a Svetlana drain. The cremasteric muscle fibers were incised transversely revealing underlying hernia sac. The small bowel could be generally identified independent of fluid, which was in the hernia sac. Hernia sac was elevated and incised and reactive inflammatory fluid allowed to egress. The hernia sac was incised more fully revealing the underlying small bowel, which although somewhat ischemic was not necrotic by any means. The aperture through which small bowel herniated was smaller than the tip of my finger and a fair amount of air had accumulated within the bowel loop. Various maneuvers were undertaken to reduce the hernia. This was not forthcoming. The tendon of the transversus abdominis, which provided much of the tension over the indirect sac was incised and with various manipulations, the bowel was able to be manipulated, but not fully reducing. The bowel was withdrawn from the abdomen and examined more fully and the area that had been incarcerated though ischemic was not necrotic. Deserosalization was noted and this was repaired with interrupted 3-0 silk sutures and the seromuscular bites. Additional relaxation was employed, but still difficulty in reducing the hernia. Additional manipulation of the internal ring was undertaken, incising it with care to avoid damage to any vascular structures. Ultimately, the hernia could be reduced into the peritoneal cavity. The remnants of the hernia sac were ultimately secured with 2-0 Vicryl suture. The cord now well isolated from the floor was more fully dissected free and the floor of the inguinal canal quite clearly very attenuated independent of the indirect sac that accounted for the incarceration. Clamps applied across the tendon of the transversus abdominis and the properitoneal fat bluntly . The segment of Prolene mesh was cut to an elliptical configuration and secured in an underlay technique with interrupted Electronically Signed By: MELISA OCONNOR MD 01/05/22 0810 PATIENT NAME: FERNIE ANTONIO OPERATIVE REPORT DATE OF : [birth year] REPORT #: [id number] PHYSICIAN: MELISA OCONNOR MD PCP: JENNA CHAPIN MD REPORT IS CONFIDENTIAL AND NOT TO BE RELEASED WITHOUT AUTHORIZATION [address] [address] Signed 2-0 Prolene sutures. A defect was cut in the graft to accommodate the cord structures. The tails of the graft were secured laterally. Irrigation was undertaken and the external oblique reapproximated with running 2-0 Vicryl suture. Jesusita layer was reapproximated with interrupted 3-0 Vicryl after application of 10 mL of 0.25% Marcaine with epinephrine. The skin was then closed with running subcuticular 3-0 Vicryl. Steri-Strips were applied as was Acticoat dressing. The patient was ultimately extubated and transferred to the recovery room in good condition. Blood loss was 25 mL or less. Sponge, needle, and instrument counts were reported as correct x3. The operation was prolonged, complicated, and difficult lasting four times longer than usual. MD DMITRY Jovel/GIANFRANCO /[id number] cc: [facility] Copies: ~ Electronically Signed By: MELISA OCONNOR MD 01/05/22 0810 PATIENT NAME: FERNIE ANTONIO OPERATIVE REPORT DATE OF : [birth year] REPORT #: [id number] PHYSICIAN: MELISA OCONNOR MD PCP: JENNA CHAPIN MD REPORT IS CONFIDENTIAL AND NOT TO BE RELEASED WITHOUT AUTHORIZATION
--- NOTE | 2022-01-05 08:10 | OR ---
[facility] [address], [place] [address] Signed DATE OF OPERATION: 01/02/2022 SURGEON: Melisa Oconnor MD PREOPERATIVE DIAGNOSES: 1. Postoperative small bowel obstruction. 2. Recent repair and reduction of incarcerated left inguinal hernia with implantation of mesh. POSTOPERATIVE DIAGNOSES: 1. Postoperative small bowel obstruction. 2. Recent repair and reduction of incarcerated left inguinal hernia with implantation of mesh. 3. Complete bowel obstruction, separate PERITONEAL defect of left groin, independent previous repaired area with interparietal internal hernia. 4. Ischemic segment of bowel (ileum). PROCEDURES: 1. Exploratory laparotomy with withdrawal of small bowel loops and decompression. 2. Reduction of incarcerated left abdominal wall from interparietal peritoneal hernia. 3. Repair of peritoneal defect. 4. Segmental small bowel resection with end-to-end enteroenterostomy. ANESTHESIA: Omer Ge CRNA and postoperative bilateral tap block. INDICATION: This 26-year-old very thin white man was seen and evaluated on December 31, 2021 with an incarcerated left inguinal hernia causing small bowel obstruction as noted by clinical findings and CT scan. He underwent emergency repair, which included reduction of the small bowel loop that had emanated from a very small defect with the internal ring with the hernia sac. Reduction of the small bowel loop was rather challenging, the resultant a bit of the serosal tear repaired with interrupted silk sutures. Once the bowel loop was reduced digital internal examination showed some dilated loops of small bowel. Withdrawal of a fair amount of small bowel was undertaken and all bowel loops returned to the peritoneal cavity. The indirect hernia was repaired with closure of the hernia sac apperture as well as repair of the very thin floor with implantation of prolene mesh in an underlay technique. Postoperatively, he did quite well initially, but soon thereafter had nausea and Electronically Signed By: MELISA OCONNOR MD 01/05/22 0810 PATIENT NAME: FERNIE ANTONIO OPERATIVE REPORT DATE OF : [birth year] REPORT #: [id number] PHYSICIAN: MELISA OCONNOR MD PCP: JENNA CHAPIN MD REPORT IS CONFIDENTIAL AND NOT TO BE RELEASED WITHOUT AUTHORIZATION [facility] [address], [place] [address] Signed vomiting, abdominal distention, and a plain abdominal x-ray showed findings of dilated bowel. Given the ischemic segment of bowel that was reduced, this was thought likely related to ileus rather than bowel obstruction proper. A nasogastric tube was placed followup KUB this morning still showed dilated loops of bowel and on that basis, a CT scan with IV and GI contrast was performed. This confirmed small bowel obstruction and did not show recurrent herniated bowel in anyway and the previous repair remained intact. On the basis of these findings, I have recommended laparotomy and exploration to determine the source of his presumed small-bowel obstruction. The risks of bleeding, infection, need for bowel resection and other unforeseen complications were reviewed with him in detail. He understands and wished to proceed. FINDINGS: Indeed small bowel loops were quite markedly inflamed and dilated. The small bowel was explanted through a small low midline abdominal laparotomy. The site of previous hernia repair showed no sign of herniation externally. The obstruction appeared to be a loop of bowel in the region of the left groin insinuated in the inter parietal space through a what appeared to be a peritoneal rather than a fascial defect essentially being an internal hernia. The previous repair was well intact and with complete fascial closure. The defect in the peritoneum was about 2 cm in size and accommodated small bowel loop along the left pelvic abdominal wall in an inter parietal position. Closure of the peritoneal defect was accomplished and bowel continuity restored. The bowel was milked from the ligament of Treitz to the terminal ileum. That segment of bowel that had been ischemic and problematic on initial operation was essentially no better than before, and although not necrotic, was better left resected. On that basis, resection was undertaken back to certainly viable proximal and distal segments and represented the ileum. An end-to-end anastomosis was accomplished. He tolerated the procedure well. DESCRIPTION OF PROCEDURE: The patient was brought to the operating room, given a general endotracheal anesthetic. A nasogastric tube was already in place. A Alcantara catheter was placed. Preoperative antibiotic Ancef had been given. Sequential compression device stockings were already in place and heparin had been administered earlier in the day. The abdomen was prepared with a chlorhexidine solution and draped sterilely. Infraumbilical incision was made. He has a very thin abdominal wall. Entry to the abdomen showed some ascites type fluid. Small bowel loops appeared to be inflamed. Incision was extended inferiorly to accommodate better exposure. The ascites fluid was suctioned free. The small bowel was withdrawn from the abdominal cavity showing inflamed bowel loops. More proximally, they were less inflamed. When all the bowel loops were explanted, there remained an area in the left lower quadrant with bowel densely adherent to the abdominal wall. This was gently manipulated and pulled out showing that there was a peritoneal defect. Electronically Signed By: MELISA OCONNOR MD 01/05/22 0810 PATIENT NAME: FERNIE ANTONIO OPERATIVE REPORT DATE OF : [birth year] REPORT #: [id number] PHYSICIAN: MELISA OCONNOR MD PCP: JENNA CHAPIN MD REPORT IS CONFIDENTIAL AND NOT TO BE RELEASED WITHOUT AUTHORIZATION [facility] [address], [place] [address] Signed Thereafter, the bowel was completely freed up. Examination under direct visualization of the abdominal wall showed the area of previous hernia repair to be quite clearly intact, but a peritoneal defect tangentially running through the area and really not a fascial defect proper noted. This was closed with 0-Prolene suture completely. The hernia repair which was separate and distinct from this area was easily identified and completely intact. The small bowel was irrigated with warm saline to assess viability of the bowel. It was quite distended. The bowel was milked from a proximal to distal direction, pushing succus entericus and that air into the cecum itself. This was done twice. A segment of bowel that had previously been incarcerated two days ago was examined and the serosal repair sutures of silk were noted. The segment of bowel was not necrotic by any means, but still was quite inflamed and although still retained some peristalsis with manipulation, it was definitely compromised and it deemed advisable to simply resect so as to avoid the need for yet another operation. The proximal and distal segments of bowel that were noted to be completely viable, were marked with a silk stitch. The mesentery between those two areas was incised with electrocautery and a vascular arcades secured with hemostats and 0 silk ties. A ANDREINA stapling device was used to transect the bowel proximally and distally for the resected segment. The resected segment was about 8 inches in length. Plans were then made for anastomosis. An end-to-end enteral configuration with interrupted 3-0 silk sutures in the serosal layer and interrupted 3-0 Vicryl in the mucosal layer. Good viability of both proximal and distal ends was noted. The mesenteric defect was secured with interrupted 3-0 silk suture. Additional warm irrigation was undertaken throughout the abdomen. The remaining bowel including the area of anastomosis appeared completely viable. The omentum was replaced over the abdominal contents after the bowel was replaced to a normal anatomic configuration. The midline fascia was reapproximated with running bidirectional #1 PDS suture. Subcutaneous tissue was irrigated and the skin closed with running subcuticular 3-0 Vicryl. Steri-Strips were applied as was Acticoat dressing. The patient then underwent application of tap blocks bilaterally for its postoperative analgesic benefit. Sponge, needle, and counts reported as correct x3. Melisa Oconnor MD Electronically Signed By: MELISA OCONNOR MD 01/05/22 0810 PATIENT NAME: FERNIE ANTONIO OPERATIVE REPORT DATE OF : [birth year] REPORT #: [id number] PHYSICIAN: MELISA OCONNOR MD PCP: JENNA CHAPIN MD REPORT IS CONFIDENTIAL AND NOT TO BE RELEASED WITHOUT AUTHORIZATION [address] [address] Signed DMITRY/GIANFRANCO /[id number] Copies: ~ Electronically Signed By: MELISA OCONNOR MD 01/05/22 0810 PATIENT NAME: FERNIE ANTONIO OPERATIVE REPORT DATE OF : [birth year] REPORT #: [id number] PHYSICIAN: MELISA OCONNOR MD PCP: JENNA CHAPIN MD REPORT IS CONFIDENTIAL AND NOT TO BE RELEASED WITHOUT AUTHORIZATION
--- NOTE | 2022-01-05 08:25 | NUR ---
MORNING ASSESSMENT COMPLETE. PT SITTIN GUP IN BED WATCHING TV. ABLE TO TOLERATE EATING YOGURT, STATED IT "HELP MY STOMACH SETTLE" DENIES NAUSEA AT THIS TIME. STATES PAIN IS TOLERABLE AT 2/10 AT THIS TIME. FRIEND AT BEDSIDE. PT DENIES FURTHER NEEDS AT THIS TIME. CALL LIGHT IN REACH.
[2022-01-05] MEDS ORDERED: HYDROCODON-ACE1 EA11 PO (08:29)
[2022-01-05] MEDS ORDERED: MOTRIN IB200 MG PO (08:29)
[2022-01-05] MEDS ORDERED: ACETAMINOPHEN500 MG PO (08:29)
[2022-01-05] MEDS ORDERED: ONDANSETRON ODT8 MG PO (08:30)
--- NOTE | 2022-01-05 09:24 | NUR ---
PT C/O 06/29 ABD PAIN. GIVEN PRN TORADOL. PT DENIES FURTHER NEEDS AT THIS TIME. CALL LIGHT IN REACH. FAMILY AT BEDSIDE.
--- NOTE | 2022-01-05 13:02 | NUR ---
PT ALERT, ORIENTED AND STANDING IN FRONT OF SINK GETTING SOME WATER. NGT DC'D PT PLEASED AND SAID HE IS JUST WAITING FOR THE DC. GAVE ENCOURAGEMENT, PT THANKED ME FOR CHECKING.
--- NOTE | 2022-01-06 13:46 | PATH ---
[facility] [address] [place], [place] [address] Signed SPECIMEN(S): A PORTION OF ILEUM SPECIMEN SOURCE: A. PORTION OF ILEUM CLINICAL HISTORY: SBO FINAL PATHOLOGIC DIAGNOSIS: Portion of ileum, segmental resection: - Segment of benign small bowel with focal prominent vascular congestion and stromal hemorrhage. - Negative for atypical epithelial features. - Focal bowel wall acute inflammation and edema. JVR:[id number] MICROSCOPIC EXAMINATION: Histologic sections of all submitted blocks are examined by light microscopy. These findings, together with the gross examination, support the pathologic diagnosis. GROSS DESCRIPTION: The specimen, labeled "DD, A," and designated on the requisition "portion of ileum, SBO," is received in formalin and consists of a previously partially opened, unoriented, 32.2 cm long, from 2.7 up to 3.5 cm diameter bowel segment with attached adipose tissue up to 2.5 cm wide. One end is closed by a 4.6 cm long staple line that has a double long suture. The staple line is removed, and the underlying tissue is inked blue. The opposing end is closed by a previously incised, 2.4 cm long staple line that has a double short suture. The staple line is removed, and the underlying tissue is inked orange. The bowel serosa is flores-cazares, smooth, and glistening. The slight cazares discoloration grossly appears to involve both margins. The bowel mucosa has a marked discoloration that grossly appears to involve both the orange inked and blue inked margin. Additionally, the bowel mucosa is focally slightly edematous, but has the usual folds. An additional discrete mass/lesion is not grossly identified. The attached adipose tissue is palpated for lymph nodes and no lymph nodes are grossly identified. Clipper Automatic sections are submitted as follows: PATIENT NAME: FERNIE ANTONIO PATHOLOGY DATE OF : [birth year] REPORT #: [id number] PHYSICIAN: LOLLY PATHOLOGY PCP: JENNA CHAPIN MD REPORT IS CONFIDENTIAL AND NOT TO BE RELEASED WITHOUT AUTHORIZATION [facility] [address] [place], [place] [address] Signed A1 perpendicular sections of the blue inked and orange inked margins A2-A3 labor representative of remaining specimen AI (under the direct supervision of a pathologist) The Gross Description was prepared using a voice recognition system. The report was reviewed for accuracy; however, sound-alike word errors, addition and/or deletions may occur. If there is any question about this report, please contact Client Services. PERFORMING LABORATORY: The technical component was performed by [facility], [address] [place] [id number] (CLIA# [id number]). Professional interpretation was performed by [facility], [address] [place] [id number] (CLIA#: [id number]). Diagnostician: Marino Jain MD Pathologist Electronically Signed 01/06/2022 Copies: ~ PATIENT NAME: FERNIE ANTONIO PATHOLOGY DATE OF : [birth year] REPORT #: [id number] PHYSICIAN: LOLLY DURAN PCP: JENNA CHAPIN MD REPORT IS CONFIDENTIAL AND NOT TO BE RELEASED WITHOUT AUTHORIZATION
--- NOTE | 2022-01-07 09:46 | DS ---
[facility] [address] [place], [place] [address] Signed ADMISSION DATE: 01/03/2022 DISCHARGE DATE: 01/05/2022 REASON FOR ADMISSION: Incarcerated left inguinal hernia with small-bowel obstruction. HISTORY OF PRESENT ILLNESS: This 26-year-old white man presents to emergency room in the vice president integrated hours and evaluated thoroughly by Dr. Bowers for complaints of severe pain and nausea and vomiting. Evaluation including abdominal CAT scan confirmed small bowel obstruction with concurrent incarcerated left inguinal hernia. He is admitted for further evaluation and care. PERTINENT PHYSICAL EXAMINATION: GENERAL: Showed a very thin white man who is not systemically toxic. VITAL SIGNS: Temperature 97.8, pulse 78, respirations 16, blood pressure 164/95. HEENT: A nasogastric tube was then placed with minimal amount of drainage. CHEST: Clear. HEART: Regular without murmur. ABDOMEN: Flat and nondistended. There is fullness in the left groin consistent with incarcerated inguinal hernia. LABORATORY DATA: White count was 12.4, hematocrit 44.6, electrolytes normal. COVID test negative. HOSPITAL COURSE: He was admitted given fluid resuscitation, nasogastric tube decompression and IV antibiotics. He was taken to the operating room that morning and through a left inguinal incision an incarcerated inguinal hernia was fully evaluated. Small bowel was incarcerated, was replaced into the abdominal cavity through a very narrow aperture defect. Hernia sac redundancy was excised in the neck of the hernia sac secured with 0 Vicryl suture. The floor was quite attenuated. Standard repair with implantation of Prolene mesh in an underlay technique was accomplished as well. Postoperatively, he initially did well but then began having abdominal distention. Abdominal KUB showed distended loops of small bowel. As the area of bowel that had been incarcerated, did have serosal tear for which repair was undertaken with silk suture and reduction of the hernia caused secondary edema. It was thought likely that segmental ileus was the more likely cause for his persistent distention and an ileus more likely than bowel obstruction proper. Electronically Signed By: MELISA OCONNOR MD 01/07/22 0946 PATIENT NAME: FERNIE ANTONIO DISCHARGE SUMMARY DATE OF : [birth year] REPORT #: [id number] PHYSICIAN: MELISA OCONNOR MD PCP: JENNA CHAPIN MD REPORT IS CONFIDENTIAL AND NOT TO BE RELEASED WITHOUT AUTHORIZATION [facility] [address] [place], [place] [address] Signed He did not clear this up within 24 hours and on that basis, a CT scan was performed with GI contrast. This showed dilated loops of bowel and one segment of decompressed bowel in the distal small bowel--thus more consistent with obstruction rather than ileus. On that basis, he underwent operation once again. Found at second operation were distended loops of bowel and an intact hernia repair but a separate peritoneal defect through which interparietal herniation of small bowel was noted. The bowel was withdrawn from the interparietal herniated area and the previous repair examined and found to be quite intact. The peritoneal defect was oversewn with Prolene suture, closing it off. The bowel that had been traumatized and somewhat ischemic at time of initial operation appeared viable but ischemic and on that basis segmental bowel resection was undertaken as well with an end to end anastomosis. Nasogastric tube was left in place. Postoperatively, he had much improvement. He had flatus within 24 hours and the nasogastric tube was removed. He was advanced from a clear liquid to a full and ultimately a solid diet, which by time of discharge he had tolerated well with several liquid bowel movements noted. He is discharged to home. He is advised to avoid lifting more than 20 pounds for the next 4 weeks. He is recommended to walk on a daily basis. He will keep steri strips on and should shower daily. DISCHARGE MEDICATIONS: 1. Tylenol 1000 mg p.o. q.6 hours p.r.n. pain. 2. Motrin 600 mg p.o. q.6 hours p.r.n. pain. 3. Helper 5/325, one-two p.o. q.6 hours #10. 4. Additionally prescribed Zofran ODT 8 mg sublingual q.6 p.r.n. nausea, vomiting. DISCHARGE DIAGNOSES: 1. Incarcerated left inguinal hernia with small bowel obstruction, status post emergency reduction of hernia and repair of left inguinal hernia including ligation of sac and implantation of Prolene mesh. 2. Early postoperative small bowel obstruction related to interparietal peritoneal defect hernia status post midline laparotomy, reduction of hernia and closure of peritoneal defect. Melisa Oconnor MD Electronically Signed By: MELISA OCONNOR MD 01/07/22 0946 PATIENT NAME: FERNIE ANTONIO DISCHARGE SUMMARY DATE OF : [birth year] REPORT #: [id number] PHYSICIAN: MELISA OCONNOR MD PCP: JENNA CHAPIN MD REPORT IS CONFIDENTIAL AND NOT TO BE RELEASED WITHOUT AUTHORIZATION [address] [address] Signed DMITRY/GIANFRANCO /[id number] cc: Dr. Robinson Levi Copies: ~ Electronically Signed By: MELISA OCONNOR MD 01/07/22 0946 PATIENT NAME: FERNIE ANTONIO DISCHARGE SUMMARY DATE OF : [birth year] REPORT #: [id number] PHYSICIAN: MELISA OCONNOR MD PCP: JENNA CHAPIN MD REPORT IS CONFIDENTIAL AND NOT TO BE RELEASED WITHOUT AUTHORIZATION
--- NOTE | 2022-01-10 15:03 | NUR ---
SPOKE WITH PATIENT BY PHONE FOR POST DISCHARGE CALL BACK. PATIENT STATES HE IS STARTING TO FEEL SO MUCH BETTER. STATES HE WAS NOT TAKING PAIN MEDS VERY OFTEN AND WAS SO SORE HE COULDN'T RELAX. HE STARTED TAKING THEM EVERY 6 HOURS AND GOT BETTER. STATES TODAY HE IS JUST TAKING TYLENOL AND IS FEELING GOOD. STATES HE IS EATING FREQUENT SMALL THINGS. STATES HAD A LITTLE NAUSEA AT FIRST BUT TOOK THE NAUSEA MEDICATIONS AND THAT GOT BETTER TOO. STATES HE IS DRINKING PLENTY OF FLUIDS. STATES HE IS HAVING BM EVERYDAY, NOT COMPLETELY SOLID YET, BUT NOT DIARRHEA. STATES HE KNOWS HIS APPOINTMENTS ALTHOUGH HE HAD THEM MIXED UP AND I POINTED THAT OUT. HE HAS HIS DISCHARGE INSTRUCTIONS AND IS GOING TO GO OVER AGAIN. HE STATES HE HAS FAMILY OR FRIENDS WHO WILL TAKE HIM. DISCUSSED FREE TRANSPORT FOR [facility]. HE STATES HE HAS THE PAPERWORK FOR THAT AND WILL USE IT IF NEEDED. STATES HE HAS THE HAND OUT ON SIDE EFFECTS OF MEDS AND THOUGHT THE STAFF DID GREAT GOING OVER THE MEDICATIONS. PATIENT HAS A PLAN ON WHAT TO DO IF HE HAS ANY PROBLEMS, CALL DR OFFICE, OR GO TO ED IF SERIOUS. HAD NO FURTHER QUESTIONS.
== END 2022-01-05 16:50 | disposition home or self-care (01) | DRG 330 ==
LOC: ED 03:25 → MS 03:26
PROVIDERS: ADMIT Surgery; ATTEND Surgery
PROC: 0DBB0ZZ Excision of Ileum, Open Approach (ICD-10-PCS; principal; 2022-01-03)
PROC: 0WQF0ZZ Repair Abdominal Wall, Open Approach (ICD-10-PCS; 2022-01-03)
DX: K91.89 Other postprocedural complications and disorders of digestive system (principal); K40.30 Unilateral inguinal hernia, with obstruction, without gangrene, not specified as recurrent; K56.601 Complete intestinal obstruction, unspecified as to cause; Z20.822 Contact with and (suspected) exposure to COVID-19; G80.9 Cerebral palsy, unspecified; F17.210 Nicotine dependence, cigarettes, uncomplicated; Z98.890 Other specified postprocedural states
CPT/HCPCS: 00830; 00840; 36415; 71045; 74019; 74177; 80048; 80053; 81001; 83690; 83735; 85025; 87502; 88307; 96374; 96375; 99285-25; 99406; A9270; C9803; J0131; J0330; J0690; J1100; J1170; J1644; J1885; J2001; J2060; J2270; J2405; J2550; J2704; J2795; J3010; J3475; J3480; J7060; J7121; Q9967; U0003